=== PATIENT | female | born 1980 | race Caucasian/White ===

== ENCOUNTER 2020-01-19 16:07 | Emergency (ER) | payer OTHER, SELFPAY ==
--- NOTE | ~2020-01-19 | XR_ITS ---
EXAMINATION: XR hand RT min 3V DATE: 01/19/2020 16:37 INDICATION: Right hand pain and swelling at the third metacarpal. TECHNIQUE: 3 views of right hand were obtained. COMPARISON: None. FINDINGS: Bone alignment is normal. No fracture. Joint spaces are well maintained. IMPRESSION: 1. Normal right hand. Reviewed, dictated and finalized at location A. IMPRESSION: 1. Normal right hand.
[2020-01-19 16:22] VITALS: BP 125/65; PULSE 98; RESP 18; TEMP 36.8; O2SAT 97
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
== END 2020-01-19 17:03 | disposition home or self-care (01) ==
PROVIDERS: Emergency Provider Emergency Medicine; PCP Family Medicine
DX: S60.221A Contusion of right hand, initial encounter (principal); X58.XXXA Exposure to other specified factors, initial encounter
CPT/HCPCS: 73130; 99283

== ENCOUNTER 2020-07-29 23:50 | Emergency (ER) | payer OTHER, SELFPAY ==
--- NOTE | ~2020-07-29 | XR_ITS ---
EXAMINATION: XR chest 1V portable INDICATION: Overdose TECHNIQUE: Portable AP chest at 0021 hours COMPARISON: 02/10/2017 FINDINGS: The lungs are free of acute opacities. No pleural effusion or pneumothorax is identified. T he cardiomediastinal silhouette is normal. The visualized osseous structures are unremarkable. IMPRESSION: 1. No acute cardiopulmonary abnormality. Reviewed, dictated and finalized at location A. STANT COMMUNITY MANAGER
--- NOTE | ~2020-07-29 | XR_ITS ---
EXAMINATION: XR abdomen/kub 1V INDICATION: Toe ingestion, overdose TECHNIQUE: Supine view of the abdomen is obtained. COMPARISON: None FINDINGS: The radiopaque foreign body is identified. The bowel gas pattern is normal. There are no di lated loops of bowel. The visualized lung bases are clear. IMPRESSION: 1. Unremarkable abdominal radiograph. Reviewed, dictated and finalized at location A. SSMENT TECHNICIAN
[2020-07-29 23:50] VITALS: BP 157/93; PULSE 94; RESP 18; TEMP 36.3; O2SAT 97
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
[2020-07-30] VITALS (17 sets, daily range): BP systolic 103–126; BP diastolic 54–77; PULSE 66–82; RESP 14–20; TEMP 36.6; O2SAT 96–100
[2020-07-30 00:37] LABS: Glucose Point of Care 77 (65-105)
[2020-07-30 00:50] LABS: Basophils Absolute Auto 0.03 K/mm3 (0.00-0.10); Basophils Percent Auto 0.6 % (0.0-1.0); Eosinophils Absolute Auto 0.15 K/mm3 (0.02-0.50); Eosinophils Percent Auto 2.8 % (1.0-6.0); Hematocrit 41.6 % (35.0-49.0); Immature Granulocyte Absolute 0.02 K/mm3 (0.00-0.00); Immature Granulocyte Percent A 0.4 % (0.0-0.0); Lymphocytes Absolute Auto 1.99 K/mm3 (1.10-4.50); Lymphocytes Percent Auto 37.5 % (18.0-42.0); Mean Corpuscular HGB Conc 33.7 g/dL (32.0-36.0); Mean Corpuscular Hemoglobin 32.7 pg (27.0-31.0); Mean Corpuscular Volume 97.2 fL (78.0-102.0); Mean Platelet Volume 9.5 fl (9.2-11.8); Monocytes Absolute Auto 0.45 K/mm3 (0.10-0.90); Monocytes Percent Auto 8.5 % (2.0-11.0); Neutrophils Absolute Auto 2.7 K/mm3 (1.7-7.2); Neutrophils Percent Auto 50.2 % (50.0-70.0); Platelet Count Result 263 K/mm3 (150-420); Red Blood Count 4.28 M/mm3 (4.20-5.40); Red Cell Distribution Width 12.7 % (11.6-14.4); White Blood Count 5.3 K/mm3 (4.8-10.8)
--- NOTE | 2020-07-30 01:02 | PC.NURSE ---
poison control contacted. . recommend observing pt for 6 hours.
[2020-07-30 01:12] LABS: Lactic Acid Reflex 1.6 mmol/L (0.4-2.0)
[2020-07-30 01:27] LABS: Prothrombin Time 10.8 Seconds (9.50-12.10)
[2020-07-30 01:31] LABS: Appearance Urine Clear (Clear); Bilirubin Urine Negative (Negative); Color Urine Yellow (Yellow); Glucose Urine UA Negative (Negative); Ketones Urine Negative (Negative); Leukocyte Esterase Ur 1+ LEU/UL (Negative); Nitrate Urine Negative (Negative); Protein Urine Negative (Negative); Specific Grav Ur <= 1.005 (1.010-1.020); Urobilinogen Urine 0.2 mg/dL (0.2-1.0); pH Urine 6.5 (5.0-8.0)
[2020-07-30 01:33] LABS: Amphetamine Screen Urine Negative (Negative); Barbiturate Screen Urine Negative (Negative); Benzodiazepines Screen Urine Negative (Negative); Cannabinoid Screen Urine Positive (Negative); Cocaine Screen Urine Positive (Negative); Methadone Screen Urine Negative (Negative); Opiate Screen Urine Negative (Negative); Phencyclidine Screen Urine Negative (Negative)
[2020-07-30 01:33] LABS: Pregnancy On Board Control Positive; Urine Pregnancy Test Negative
[2020-07-30 01:36] LABS: Alanine Aminotransferase 21 U/L (14-59); Albumin Level 3.9 g/dL (3.4-5.0); Alkaline Phosphatase 69 U/L (46-116); Anion Gap 11 mmol/L (8-16); Aspartate Amino Transferase 10 U/L (15-37); Bilirubin,Total 0.2 mg/dL (0.00-1.00); Blood Urea Nitrogen 9 mg/dL (7-18); Calcium 8.7 mg/dL (8.5-10.1); Carbon Dioxide 24 mmol/L (21-32); Chloride 105 mmol/L (98-108); Creatine Kinase 51 U/L (26-192); Estimated CRCL calculation 123 ml/min; Estimated Glomerular Filt Rate > 60; Glucose 80 mg/dL (70-99); Magnesium 2.3 mg/dL (1.8-2.4); Osmolality Calculated 287 mOsm/kg (285-295); Phosphorus 2.4 mg/dL (2.6-4.7); Potassium 3.1 mmol/L (3.5-5.1); Salicylate 5.6 mg/dL (2.8-20.0); Sodium 140 mmol/L (136-145); Thyroid Stimulating Hormone 1.79 uIU/mL (0.36-3.74); Total Protein 7.3 g/dL (6.4-8.2)
[2020-07-30 01:39] LABS: Acetaminophen < 2 ug/mL (10-30)
[2020-07-30 01:40] LABS: Add Urine Microscopic? YES; Bacteria Urine Trace /hpf; Blood Urine Trace-lysed (Negative); RBC Urine 0-2 /hpf (0-2); Squamous Epithelial Cell Urine Few /hpf (Few)
[2020-07-30 01:40] LABS: Ethanol 202 mg/dL (0-6)
--- NOTE | 2020-07-30 01:44 | PC.NURSE ---
report to [facility]el
--- NOTE | 2020-07-30 01:51 | PC.NURSE ---
Report received, pt. sleeping c sitter at side and in view of nurse station.
[2020-07-30] MEDS: NITROFURANTOIN MONOHYD MACROCR 100 MG CAP PO ×2 (02:32→11:11)
[2020-07-30] MEDS: POTASSIUM CHLORIDE 20 MEQ PACKET (FOR LIQUID) 40 MEQ PO (02:32)
--- NOTE | 2020-07-30 02:33 | PC.NURSE ---
Pt. awakens and is alert when name called, Pt. took meds as given.
--- NOTE | 2020-07-30 03:35 | PC.NURSE ---
Pt. sleeping and in constant view of nurse station. VSS.
[2020-07-30] MEDS: ONDANSETRON INJ 4 MG/2 ML VIAL IV PUSH (04:40)
[2020-07-30] MEDS: SODIUM CHLORIDE 0.9% IV 1,000 ML 200 ML IV CONT (04:43)
--- NOTE | 2020-07-30 04:45 | PC.NURSE ---
Pt. awake, A&Ox3, onset of episode of vomiting, pt. then up and ambulatory per self to BR. Order obtained from Dr. Wang. Pt. back amb. to bed and wanting to know if she can leave. Advised pt. about another blood draw in AM and need to speak c counselor. Pt. back to bed c incident.
--- NOTE | 2020-07-30 06:07 | PC.NURSE ---
P.C. called back for update on pt. status, labs discussed, no further recomendations, P.C. closed case.
--- NOTE | 2020-07-30 07:05 | PC.NURSE ---
Pt. up amb. per self to BR and back to bed. Pt. agreeable to POC to speak c counselor. Pt. wanting breakfast tray.
[2020-07-30 07:15] LABS: Ethanol 108 mg/dL (0-6)
[2020-07-30 09:08] LABS: Ethanol 73 mg/dL (0-6)
--- NOTE | 2020-07-30 10:33 | PC.NURSE ---
Felix Dickson finished pt. palma. and d/c home c safety plan received by pt. F/U care discussed and home instructions given.
== END 2020-07-30 11:15 | disposition home or self-care (01) ==
PROVIDERS: Emergency Medicine; Emergency Provider Emergency Medicine; PCP Family Medicine
DX: R45.851 Suicidal ideations (principal); E87.6 Hypokalemia; R82.81 Pyuria; T50.902A Poisoning by unspecified drugs, medicaments and biological substances, intentional self-harm, initial encounter; F10.920 Alcohol use, unspecified with intoxication, uncomplicated
CPT/HCPCS: 36415; 71045; 74018; 80053; 80307; 81001; 81025; 82550; 82948; 83605; 83735; 83930; 84100; 84443; 85025; 85610; 85730; 87077; 87086; 87088; 87186; 93005; 96361; 96374; 99284; 99285; A9270; J2405; J7030

== ENCOUNTER 2021-02-18 18:41 | Emergency (ER) | payer OTHER, SELFPAY ==
--- NOTE | ~2021-02-18 | CT_ITS ---
EXAMINATION: CT abdomen pelvis w con EXAM DATE: 02/18/2021 21:07 INDICATION: RLQ tenderness, fever, vomiting RLQ tenderness/pain w/ nausea/vomiting today. TECHNIQUE: Spiral CT of the abdomen and pelvis was performed following intravenous injection of 100 m L Omnipaque 350. Axial, coronal and sagittal images of the abdomen and pelvis were reviewed. The do se-length product (DLP) for this examination was 692.88 mGy-cm. The exposure was tailored according to patient size (auto mA exposure control), and iterative reconstruction (ASIR) was used as additiona l dose reduction technique. Comparison is made to prior examination from 01/23/2018. FINDINGS: The liver, spleen, adrenal glands and pancreas are unremarkable. The gallbladder is contra cted but otherwise unremarkable. Portal and splenic veins are patent. Kidneys enhance symmetrically . There is no hydronephrosis. The uterus is anteverted and morphologically normal. The bladder i s unremarkable. There is no retroperitoneal or pelvic lymphadenopathy. Small umbilical fat-contain ing hernia. The appendix is normal. The stomach and small bowel are unremarkable. There is expected amount of c olonic stool. No free intraperitoneal gas. The heart is normal in size. There are no pericardial or pleural effusions. The lung bases are unremarkable. There are no osteoblastic or osteolytic les ions identified. In 2018, there is mild right perinephric fat stranding which has resolved. Otherwise, no appreciable interval change. IMPRESSION: 1. No acute intra-abdominal findings. Normal appendix. 2. Small umbilical fat-containing hernia. Reviewed, dictated and finalized at location A.
--- NOTE | 2021-02-18 18:59 | ED.ABDPAIN ---
HPI - Abdominal Pain General Chief Complaint: Abdominal Pain Stated Complaint: low side/stomach pain, blood in stool Time Seen by Provider: 02/18/21 19:09 Source: patient Mode of arrival: ambulatory Limitations: no limitations History of Present Illness HPI narrative: 40-year-old woman who was previously well comes in today complaining of right lower quadrant pain, nausea, vomiting, fevers, lightheadedness and blood in her toilet. States her symptoms started yesterday. He had a bowel movement earlier today which left the water in her toilet bright red. She states she has a history of hemorrhoids but has never had that much blood in her stools. There was no blood in her vomitus. She has no history of surgery except for C-sections x3. She is on OCP. She denies cough or cold symptoms, recent illness, rash, bruising, dysuria, hematuria, and vaginal bleeding or discharge. MD elicited complaint: abdominal pain Onset (ago): day(s) (1) Pain Consistency: constant Location: RLQ Severity: severe Quality: sharp Radiation: none Migration to: no migration Exacerbating factors: movement and other ( Walking) Relieving factors: nothing Associated symptoms: nausea, vomiting, fever, chills, hematochezia and other (BRBPR) Related Data Allergies Allergy/AdvReac Type Severity Reaction Status Date / Time No Known Allergies Allergy Unknown Unverified 04/28/07 13:01 Review of Systems Constitutional: Constitutional: Reports chills, Denies fatigue, Reports fever(s) and Denies weakness Eyes: Eyes: Denies change in vision and Denies photophobia ENT: Denies nasal congestion and Denies sore throat Cardiovascular: Cardiovascular: Denies chest pain and Denies radiating jaw, neck or arm pain Respiratory: Respiratory: Denies cough and Denies dyspnea Gastrointestinal: Gastrointestinal: Reports as per HPI, Reports abdominal pain, Reports nausea and Reports vomiting Genitourinary: Genitourinary: Denies abnormal vaginal bleeding, Denies hematuria, Denies nocturia, Denies dysuria and Denies vaginal discharge Musculoskeletal: Musculoskeletal: Denies back pain, Denies arthralgias and Denies joint swelling Integumentary/Breasts: Skin/Breast: Denies pruritus, Denies erythema and Denies rash Neurologic: Denies vertigo, Reports dizziness and Denies syncope Hematologic/Lymphatic: Hematologic/Lymphatic: Denies easy bleeding and Denies easy bruising Allergic/Immunologic: Allergic/Immunologic: Denies lip swelling and Denies throat swelling PMFSH Surgical History Surgical History (Updated 02/18/21 @ 19:46 by Ed Wang MD) History of x3 Social History Social History Smoking status: Current every day smoker Alcohol intake: current Substance use type: marijuana Gender identity (if verbalized by the patient): Female Exam Const: General: healthy appearing and alert Nutritional Appearance: well nourished Orientation/consciousness: patient oriented x3 Other: moderate acute distress Eyes: Conjunctivae: conjunctivae normal Pupils: Equal, round and reactive pupils present EOM: EOMs intact bilaterally Resp: Effort & Inspection: normal respiratory effort and not labored Auscultation: clear to auscultation bilaterally, no rales, no rhonchi and no wheezes Cardio: Rate: regular rate Rhythm: regular rhythm Heart sounds: no murmurs GI: GI Palp: Yes Soft to palpation, Yes Tenderness to palpation present (GI) ( right lower quadrant with percussion tenderness), No Guarding due to palpation present (GI) and No Rigid due to palpation Skin: General skin exam: normal color, no jaundice and no pallor Rashes: no rashes Neuro: General: patient oriented x3, moves all extremities, no focal motor deficits and CN's II-XI intact bilaterally Speech: normal speech Gait exam (Neuro): Normal gait present Extrem: General: normal to inspection and no clubbing, cyanosis or edema Other: ext
[2021-02-18 19:01] VITALS: BP 160/94; PULSE 86; RESP 20; TEMP 36.9; O2SAT 97
[2021-02-18] MEDS: SODIUM CHLORIDE 0.9% IV 1,000 ML 999 ML IV CONT (19:35)
[2021-02-18] MEDS: ONDANSETRON INJ 4 MG/2 ML VIAL IV PUSH (19:36)
[2021-02-18 19:38] LABS: Basophils Absolute Auto 0.04 K/mm3 (0.00-0.10); Basophils Percent Auto 0.4 % (0.0-1.0); Eosinophils Absolute Auto 0.26 K/mm3 (0.02-0.50); Eosinophils Percent Auto 2.8 % (1.0-6.0); Hematocrit 40.9 % (35.0-49.0); Hemoglobin 13.8 g/dL (12.0-15.0); Immature Granulocyte Absolute 0.04 K/mm3 (0.00-0.00); Immature Granulocyte Percent A 0.4 % (0.0-0.0); Lymphocytes Percent Auto 24.5 % (18.0-42.0); Mean Corpuscular HGB Conc 33.7 g/dL (32.0-36.0); Mean Corpuscular Hemoglobin 32.8 pg (27.0-31.0); Mean Corpuscular Volume 97.1 fL (78.0-102.0); Mean Platelet Volume 9.5 fl (9.2-11.8); Monocytes Absolute Auto 0.73 K/mm3 (0.10-0.90); Monocytes Percent Auto 7.8 % (2.0-11.0); Neutrophils Percent Auto 64.1 % (50.0-70.0); Platelet Count Result 272 K/mm3 (150-420); Red Blood Count 4.21 M/mm3 (4.20-5.40); White Blood Count 9.4 K/mm3 (4.8-10.8)
[2021-02-18 19:42] LABS: Occult Blood Negative (Negative)
[2021-02-18 19:54] LABS: Alanine Aminotransferase 29 U/L (14-59); Albumin Level 3.6 g/dL (3.4-5.0); Alkaline Phosphatase 76 U/L (46-116); Anion Gap 11 mmol/L (8-16); Aspartate Amino Transferase 12 U/L (15-37); Bilirubin,Total 0.2 mg/dL (0.00-1.00); Blood Urea Nitrogen 10 mg/dL (7-18); Carbon Dioxide 26 mmol/L (21-32); Chloride 105 mmol/L (98-108); Estimated CRCL calculation 83 ml/min; Estimated Glomerular Filt Rate > 60; Glucose 96 mg/dL (70-99); Lipase 69 U/L (73-393); Osmolality Calculated 293 mOsm/kg (285-295); Potassium 3.3 mmol/L (3.5-5.1); Sodium 142 mmol/L (136-145); Total Protein 6.7 g/dL (6.4-8.2)
[2021-02-18 19:55] LABS: Troponin I < 4.0 ng/L (0.00-60.4)
[2021-02-18 19:57] LABS: Lactic Acid Reflex 1.1 mmol/L (0.4-2.0)
[2021-02-18 20:22] LABS: Add Urine Microscopic? YES; Appearance Urine Clear (Clear); Bilirubin Urine Negative (Negative); Blood Urine 1+ (Negative); Glucose Urine UA Negative (Negative); Ketones Urine Negative (Negative); Leukocyte Esterase Ur Negative LEU/UL (Negative); Nitrate Urine Negative (Negative); Protein Urine Negative (Negative); Urobilinogen Urine 0.2 mg/dL (0.2-1.0); pH Urine 6.5 (5.0-8.0)
[2021-02-18 20:28] LABS: Bacteria Urine Trace /hpf; Color Urine Dark Yellow (Yellow); RBC Urine 0-2 /hpf (0-2); Squamous Epithelial Cell Urine Rare /hpf (Few); WBC Urine 0-3 /hpf (0-3)
[2021-02-18 20:29] LABS: Pregnancy On Board Control Positive; Urine Pregnancy Test Negative
[2021-02-18 21:46] VITALS: BP 155/101; PULSE 83; RESP 20; O2SAT 97
== END 2021-02-18 21:47 | disposition home or self-care (01) ==
PROVIDERS: Emergency Provider Emergency Medicine; PCP Family Medicine
DX: E87.6 Hypokalemia (principal); R10.31 Right lower quadrant pain; K64.9 Unspecified hemorrhoids
CPT/HCPCS: 36415; 74177; 80053; 81001; 81025; 82272; 83605; 83690; 84484; 85025; 96361; 96374; 99283; 99284; J2405; J7030; Q9967

== ENCOUNTER 2021-08-07 09:31 | Outpatient (CLI) | payer OTHER, SELFPAY ==
--- NOTE | ~2021-08-07 | XR_ITS ---
EXAMINATION: XR shoulder RT min 2V DATE: 08/07/2021 10:00 INDICATION: Right shoulder pain. TECHNIQUE: 4 views of right shoulder were obtained. COMPARISON: None. FINDINGS: Bone alignment is normal. No fracture. Joint spaces are well maintained. IMPRESSION: 1. Normal right shoulder. Reviewed, dictated and finalized at location B. OPERATOR IMPRESSION: 1. Normal right shoulder.
--- NOTE | ~2021-08-07 | XR_ITS ---
EXAMINATION: XR chest 2V DATE: 08/07/2021 09:59 INDICATION: Shortness of breath. Cough. TECHNIQUE: Frontal and lateral views of the chest were obtained. COMPARISON: Chest single view 07/30/2020, CT abdomen and pelvis 02/18/2021 FINDINGS: The chest demonstrates clear lungs without pneumonia, pleural effusion, or pneumothorax. Th e heart size is normal. IMPRESSION: 1. No acute cardiopulmonary disease. Reviewed, dictated and finalized at location B. RAL RESOURCES PROFESSOR
--- NOTE | ~2021-08-07 | XR_ITS ---
EXAMINATION: XR_CERV2-3V_CR EXAM DATE: 08/07/2021 10:00 INDICATION: Cervicalgia. TECHNIQUE: Cervical spine frontal, lateral, open-mouth odontoid projections. There is no prior stud y for comparison. FINDINGS: The vertebral bodies are aligned in the AP dimension. Vertebral body and disc heights are well-maintained. Mild cervical facet arthropathy and mid cervical uncovertebral joint arthropathy. P revertebral soft tissue and pre-dens space are within normal limits. The odontoid process is intact. The lateral masses of C1 line up with C2. IMPRESSION: Mild cervical arthropathy. Reviewed, dictated and finalized at location A. NCIAL SECRETARY IMPRESSION: Mild cervical arthropathy.
[2021-08-07 09:45] LABS: Basophils Absolute Auto 0.04 K/mm3 (0.00-0.10); Basophils Percent Auto 0.5 % (0.0-1.0); Eosinophils Absolute Auto 0.44 K/mm3 (0.02-0.50); Eosinophils Percent Auto 5.5 % (1.0-6.0); Hematocrit 41.8 % (35.0-49.0); Immature Granulocyte Absolute 0.01 K/mm3 (0.00-0.00); Immature Granulocyte Percent A 0.1 % (0.0-0.0); Lymphocytes Absolute Auto 1.77 K/mm3 (1.10-4.50); Mean Corpuscular HGB Conc 33.5 g/dL (32.0-36.0); Mean Corpuscular Hemoglobin 32.6 pg (27.0-31.0); Mean Corpuscular Volume 97.4 fL (78.0-102.0); Mean Platelet Volume 9.4 fl (9.2-11.8); Monocytes Absolute Auto 0.82 K/mm3 (0.10-0.90); Monocytes Percent Auto 10.2 % (2.0-11.0); Neutrophils Percent Auto 61.7 % (50.0-70.0); Platelet Count Result 284 K/mm3 (150-420); Red Blood Count 4.29 M/mm3 (4.20-5.40); Red Cell Distribution Width 12.6 % (11.6-14.4); White Blood Count 8.1 K/mm3 (4.8-10.8)
[2021-08-07 10:47] LABS: Alanine Aminotransferase 33 U/L (14-59); Albumin Level 3.6 g/dL (3.4-5.0); Alkaline Phosphatase 75 U/L (46-116); Anion Gap 11 mmol/L (8-16); Aspartate Amino Transferase 23 U/L (15-37); Bilirubin,Total 0.4 mg/dL (0.00-1.00); Blood Urea Nitrogen 13 mg/dL (7-18); Calcium 8.8 mg/dL (8.5-10.1); Carbon Dioxide 25 mmol/L (21-32); Chloride 104 mmol/L (98-108); Estimated Glomerular Filt Rate > 60; Free T4 Free Thyroxine 1.02 ng/dL (0.76-1.46); Glucose 91 mg/dL (70-99); Magnesium 2.4 mg/dL (1.8-2.4); Osmolality Calculated 290 mOsm/kg (285-295); Potassium 3.8 mmol/L (3.5-5.1); Sodium 140 mmol/L (136-145); Thyroid Stimulating Hormone 3.15 uIU/mL (0.36-3.74); Total Protein 6.5 g/dL (6.4-8.2); Vitamin B12 428 pg/mL (193-986)
[2021-08-10 19:24] LABS: Vitamin D 25 Hydroxy 8 ng/mL (30-100)
== END 2021-08-07 09:32 | disposition home or self-care (01) ==
LOC: CHSLAB 09:34
PROVIDERS: PCP Family Medicine; Visit Provider Nurse Practitioner Family
DX: M54.2 Cervicalgia (principal); R06.02 Shortness of breath; M25.511 Pain in right shoulder; R53.83 Other fatigue; Z79.899 Other long term (current) drug therapy
CPT/HCPCS: 36415; 71046; 72040; 73030; 80053; 82306; 82607; 83735; 84439; 84443; 85025

== ENCOUNTER 2021-11-12 04:10 | Emergency (ER) | payer OTHER, SELFPAY ==
--- NOTE | ~2021-11-12 | XR_ITS ---
EXAMINATION: XR chest 1V portable DATE: 11/12/2021 04:45 INDICATION: Chest pain. TECHNIQUE: A single frontal view of the chest was obtained. COMPARISON: Chest 2 views 08/07/2021, chest CT 11/12/2021 FINDINGS: The chest demonstrates clear lungs without pneumonia, pleural effusion, or pneumothorax. Th e heart size is normal. IMPRESSION: 1. No acute cardiopulmonary disease. Reviewed, dictated and finalized at location A.
--- NOTE | ~2021-11-12 | CT_ITS ---
EXAMINATION:CT diagnostic chest wo con DATE: 11/12/2021 05:45 INDICATION: Chest pain. TECHNIQUE: Computed tomography (CT) of the chest was performed without intravenous contrast. Automate d exposure control and iterative reconstruction technique were employed. The dose-length product (DLP ) was 360.29 mGy-cm. COMPARISON: CT abdomen and pelvis 02/18/2021 FINDINGS: There is mild atelectasis in left upper lobe. No pleural effusion. There is a diverticulum in the right tracheoesophageal groove at the thoracic inlet, likely a tracheal diverticulum. Calcifie d left hilar lymph nodes are consistent with old granulomatous disease. The heart size is normal. No pericardial effusion. Calcifications in the spleen are consistent with old granulomatous disease. The re is mild thoracic spondylosis. IMPRESSION: 1. No etiology for the patient's symptoms. Reviewed, dictated and finalized at location A.
[2021-11-12 04:10] VITALS: BP 124/99; PULSE 97; PULSE 98; RESP 20; TEMP 36.6; O2SAT 99
--- NOTE | 2021-11-12 04:18 | ECG_ITS ---
Measurements Intervals [place] Rate: 93 P: 35 [place]: 149 QRS: -33 QRSD: 100 T: 30 QT: 373 QTc: 465 Interpretive Statements SINUS RHYTHM WITH OCCASIONAL SUPRAVENTRICULAR PREMATURE COMPLEXES LEFT AXIS DEVIATION [QRS AXIS < -30] COMPARED TO ECG 07/29/2020 23:57:56 NO SIGNIFICANT CHANGE Electronically Signed On 11-12-2021 14:14:53 CDT by Alondra Marques M.D.
[2021-11-12] MEDS: ASPIRIN 81 MG CHEWABLE TABLET 324 MG PO (04:32)
[2021-11-12] MEDS: PANTOPRAZOLE SODIUM IV 40 MG VIAL IV PUSH (04:32)
[2021-11-12] MEDS: ONDANSETRON INJ 4 MG/2 ML VIAL IV PUSH (04:32)
[2021-11-12] MEDS: MAG HYDROX/ALUMINUM HYD/SIMETH 30 ML, PHENobarb/HYOSCY/ATROPINE/SCOP 32.4 MG, LIDOCAINE... PO (04:32)
[2021-11-12 04:40] LABS: Basophils Absolute Auto 0.02 K/mm3 (0.00-0.10); Basophils Percent Auto 0.2 % (0.0-1.0); Eosinophils Absolute Auto 0.24 K/mm3 (0.02-0.50); Eosinophils Percent Auto 2.3 % (1.0-6.0); Hematocrit 43.9 % (35.0-49.0); Immature Granulocyte Absolute 0.02 K/mm3 (0.00-0.00); Immature Granulocyte Percent A 0.2 % (0.0-0.0); Lymphocytes Absolute Auto 1.41 K/mm3 (1.10-4.50); Lymphocytes Percent Auto 13.5 % (18.0-42.0); Mean Corpuscular HGB Conc 34.2 g/dL (32.0-36.0); Mean Corpuscular Volume 96.5 fL (78.0-102.0); Mean Platelet Volume 9.4 fl (9.2-11.8); Monocytes Absolute Auto 1.38 K/mm3 (0.10-0.90); Monocytes Percent Auto 13.2 % (2.0-11.0); Neutrophils Absolute Auto 7.4 K/mm3 (1.7-7.2); Neutrophils Percent Auto 70.6 % (50.0-70.0); Platelet Count Result 291 K/mm3 (150-420); Red Blood Count 4.55 M/mm3 (4.20-5.40); White Blood Count 10.4 K/mm3 (4.8-10.8)
[2021-11-12] MEDS: NITROGLYCERIN SL 0.4 MG TABLET SUBLINGUAL ×2 (04:40→05:10)
[2021-11-12 04:48] VITALS: BP 122/66; PULSE 86; RESP 20; O2SAT 96
[2021-11-12 05:01] LABS: Alanine Aminotransferase 43 U/L (14-59); Albumin Level 3.6 g/dL (3.4-5.0); Alkaline Phosphatase 89 U/L (46-116); Anion Gap 10 mmol/L (8-16); Aspartate Amino Transferase 21 U/L (15-37); Bilirubin,Total 0.3 mg/dL (0.00-1.00); Blood Urea Nitrogen 11 mg/dL (7-18); Calcium 8.6 mg/dL (8.5-10.1); Carbon Dioxide 25 mmol/L (21-32); Chloride 101 mmol/L (98-108); Estimated CRCL calculation 120 ml/min; Estimated Glomerular Filt Rate > 60; Glucose 112 mg/dL (70-99); NT Pro B Type Natriuretic Pept 50 pg/mL (0-125); Osmolality Calculated 282 mOsm/kg (285-295); Potassium 3.1 mmol/L (3.5-5.1); Sodium 136 mmol/L (136-145)
[2021-11-12 05:02] LABS: Troponin I 92.1 ng/L (0.00-60.4)
[2021-11-12 05:07] LABS: Add Urine Microscopic? YES; Appearance Urine Sl Cloudy (Clear); Bilirubin Urine 1+ (Negative); Blood Urine 2+ (Negative); Color Urine Yellow (Yellow); Glucose Urine UA Negative (Negative); Ketones Urine Negative (Negative); Leukocyte Esterase Ur Negative LEU/UL (Negative); Nitrate Urine Negative (Negative); Protein Urine Negative (Negative); Specific Grav Ur >= 1.030 (1.010-1.020); Urobilinogen Urine 0.2 mg/dL (0.2-1.0); pH Urine 5.5 (5.0-8.0)
[2021-11-12] MEDS: MORPHINE SULFATE (*CRX) 2 MG/ML INJ IV PUSH (05:10)
[2021-11-12 05:14] LABS: Amphetamine Screen Urine Negative (Negative); Barbiturate Screen Urine Negative (Negative); Benzodiazepines Screen Urine Negative (Negative); Cannabinoid Screen Urine Positive (Negative); Cocaine Screen Urine Negative (Negative); Methadone Screen Urine Negative (Negative); Opiate Screen Urine Negative (Negative); Phencyclidine Screen Urine Negative (Negative)
--- NOTE | 2021-11-12 05:17 | PC.NURSE ---
Discussed transfer to cardiology for services, pt wishes to go to [facility] for cardiolgy Drs. and transfer. Call placed to [facility] transfer line c report and awaiting call back from cardiology.
[2021-11-12 05:23] LABS: Bacteria Urine 1+ /hpf; Mucus Urine Few /lpf; Squamous Epithelial Cell Urine Many /hpf (Few); WBC Urine 0-3 /hpf (0-3)
--- NOTE | 2021-11-12 05:24 | ED.CHESTPAIN ---
HPI - Chest Pain General Chief Complaint: Chest Pain Stated Complaint: Chest Pains Time Seen by Provider: 11/12/21 04:12 Source: patient, RN notes reviewed and old records reviewed Mode of arrival: ambulatory Limitations: no limitations History of Present Illness MD complaint: chest pain and chest heaviness Pertinent past history: other (similar non-cardiac chest pain 7 yrs ago.) Onset (ago): hour(s) (1) Timing of current episode: constant Prior episodes: Yes Onset: during rest Pain location: left chest Pain radiation: other (central sternum) Severity: severe Pain scale (0-10): 9 Quality: aching, heaviness, burning and crushing Relieving factors: nothing Exacerbating factors: nothing Associated symptoms: nausea and sense of impending doom Treatment prior to arrival: none Risk Factors Coronary artery disease risk factors: smoking history Related Data Allergies Allergy/AdvReac Type Severity Reaction Status Date / Time No Known Allergies Allergy Unknown Verified 09/15/21 09:00 Review of Systems Review of Systems: All systems reviewed & are unremarkable except as noted in HPI and below PMFSH Past Medical History Medical History Acute hypokalemia Alcohol intoxication Drug overdose Non-ST elevated myocardial infarction (non-STEMI) Pyuria Suicidal ideation Surgical History Surgical History History of x3 Social History Social History Smoking status: Current every day smoker Alcohol intake: current Substance use type: marijuana Gender identity (if verbalized by the patient): Female Exam Const: General: no acute distress Nutritional Appearance: obese Orientation/consciousness: patient oriented x3 Limitations: no limitations HENMT: Head: normal to inspection Ears: TM's normal bilaterally General nose exam: Normal external nose present and Normal nares present Mouth: Yes moist mucous membranes Eyes: Conjunctivae: conjunctivae normal Pupils: Equal, round and reactive pupils present EOM: EOMs intact bilaterally Neck: Neck: normal visual inspection and no lymphadenopathy Chest: Chest palpation & inspection: normal inspection of the chest Resp: Effort & Inspection: normal respiratory effort Auscultation: clear to auscultation bilaterally Cardio: Rate: tachycardic Rhythm: abnormal rhythm GI: Auscultation: normal bowel sounds : General: Yes bladder normal to palpation and Yes no CVA tenderness Back/Spine/Pelvis: Back: no CVA tenderness Skin: General skin exam: normal color Rashes: no rashes Neuro: General: patient oriented x3, moves all extremities, no meningeal signs, no focal motor deficits and CN's II-XI intact bilaterally Extrem: General: normal to inspection and no pedal edema Psych: Appearance: grossly normal Mental Status: mental status grossly normal Attitude: cooperative Thought content: Yes Normal thought content present Course Course Emergency Course: Pt for transfer to Cardiology care at [facility]. Reevaluation(s) Reevaluation #1: pt was pain-free in the ED. Date: 11/12/21 Time: 06:10 Vital Signs Vital signs: Vital Signs Temperature 36.6 C 11/12/21 04:10 Pulse Rate 98 11/12/21 04:10 Respiratory Rate 20 11/12/21 04:10 Blood Pressure 124/99 H 11/12/21 04:10 Pulse Oximetry 99 11/12/21 04:10 Temperature 36.6 C 11/12/21 06:53 Pulse Rate 79 11/12/21 06:53 Respiratory Rate 18 11/12/21 06:53 Blood Pressure 107/60 11/12/21 06:53 Pulse Oximetry 97 11/12/21 06:53 MDM - Chest Pain Lab Data Result diagrams: 11/12/21 04:36 11/12/21 04:36 Labs: Lab Results 11/12/21 11/12/21 11/12/21 Range/Units 04:36 04:36 05:03 WBC 10.4 (4.8-10.8) K/mm3 RBC 4.55 (4.20-5.40) M/mm3 Hgb 15.0 (12.0-15.0) g/dL Hct 43.
[2021-11-12] MEDS: POTASSIUM CHLORIDE 20 MEQ TABLET 40 MEQ PO (05:36)
--- NOTE | 2021-11-12 05:41 | PC.NURSE ---
Call back from [facility], no beds available at [facility], pt. wishes to transfer to [facility]. Call to house supv. Alanis, awaiting call back from senior drafter director oncology Dr Augustin.
[2021-11-12 05:47] VITALS: BP 120/86; PULSE 85; RESP 18; O2SAT 98
--- NOTE | 2021-11-12 05:54 | PC.NURSE ---
Call back from Dr Augustin accepts for transfer. Paperwork signed for transfer to [facility].
[2021-11-12] MEDS: HEPARIN SODIUM 5,000 UNITS/ML VIAL 5000 UNITS IV PUSH (06:21)
[2021-11-12] MEDS: HEPARIN SOD/D5W 100 UNITS/ML 25,000 UNITS/250 ML BAG 9.99 UNITS IV CONT (06:25)
[2021-11-12] MEDS: NITROGLYCERIN OINTMENT 1 INCH DOSE TRANSDERM (06:42)
[2021-11-12 06:53] VITALS: BP 107/60; PULSE 77; PULSE 79; RESP 18; TEMP 36.6; O2SAT 97
--- NOTE | 2021-11-12 06:59 | PC.NURSE ---
Report given to Neli at [facility], call placed to [facility] for transfer. Pt resting, VSS, monitor shows NSR.
--- NOTE | 2021-11-12 07:14 | PC.NURSE ---
Report given to GBAAS, pt loaded to cot s difficulty. Pt stable.
== END 2021-11-12 07:19 | disposition short-term general hospital (02) ==
PROVIDERS: Emergency Provider Emergency Medicine; PCP Family Medicine
DX: I21.4 Non-ST elevation (NSTEMI) myocardial infarction (principal)
CPT/HCPCS: 36415; 71045; 71250; 80053; 80307; 81001; 83880; 84484; 85025; 93005; 96365; 96375; 99291; A9270; C9113; J1644; J2270; J2405

== ENCOUNTER 2021-11-12 09:24 | Inpatient (IN) | payer OTHER, SELFPAY ==
[2021-11-12] VITALS (18 sets, daily range): BP systolic 94–130; BP diastolic 54–96; PULSE 65–91; RESP 14–20; TEMP 36.2–36.9; O2SAT 95–100; BMI 31.8
--- NOTE | ~2021-11-12 | CT_ITS ---
EXAMINATION: CTA chest EXAM DATE: 11/12/2021 15:35 INDICATION: Chest pain to back, elevated trop, cath neg . TECHNIQUE: Spiral CT of the chest following intravenous injection of 100 mL Omnipaque 350. Axial, co satya and sagittal images of the chest were reviewed. Maximum intensity projection 3-D reconstruction s of the aorta were created by the technologist on dedicated workstation. Coronal maximum intensity pixel images of chest reviewed. The dose-length product (DLP) for this examination was 594.72 mGy-cm . The exposure was tailored according to patient size (auto mA exposure control), and iterative fatuma nstruction (ASIR) was used as additional dose reduction technique. Comparison is made to prior examin ation from earlier same date, a noncontrast study. FINDINGS: Aorta and pulmonary arteries are opacified. Thoracic aorta is normal in caliber, no dissect ion. Scanning was performed through the renal arteries. The celiac, SMA, renal arteries are widely pa tent. There are no pleural or pericardial effusions. Tracheobronchial tree is patent. There is n o mediastinal, hilar or axillary lymphadenopathy. There is no pneumothorax. Heart normal in size. No evidence of coronary arterial calcification. Upper abdomen is unremarkable. The bones are un remarkable, no rib fracture identified IMPRESSION: Unremarkable CTA chest examination. Reviewed, dictated and finalized at location A.
--- NOTE | 2021-11-12 08:08 | ECG_ITS ---
Measurements Intervals [place] Rate: 72 P: -7 [place]: 144 QRS: -28 QRSD: 99 T: 2 QT: 386 QTc: 425 Interpretive Statements SINUS RHYTHM BORDERLINE LEFT AXIS DEVIATION [QRS AXIS < -20] LOW QRS VOLTAGE IN PRECORDIAL LEADS [QRS DEFLECTION < 1.0 mV IN CHEST LEADS] COMPARED TO ECG 11/12/2021 04:17:05 NO SIGNIFICANT CHANGES Electronically Signed On 11-12-2021 14:22:24 CDT by Alondra Marques M.D.
--- NOTE | 2021-11-12 08:49 | PM.IMHP ---
H&P: HPI History of Present Illness Date/Time: 11/12/21 08:49 Chief Complaint: 41yo female with questionable hx of NSTEMI transferred from outside hospital for chest pain. Around 308am, patient was awaken with chest pain. She describes it as a 'tightness' substernal radiating to the collar bone area. She had nausea and vomiting as well as SOB. No abd pain. Recently had COVID in September but did not require hospitalization. The chest pain was worse with coughing and when laying on her back. Pain is better if she massages the mid chest and if she lays on her side. More palpable pain in the upper part of the chest. Seven years ago, she had similar pain after her mother . She had EKG changes and transferred to [facility] where she had cardiac imaging possibly a heart cath. She was told she had a 'small heart attack' but when she saw the video rental clerk a few weeks later, he said she did not have a heart attack. She presented to the outside hospital for evaluation. Patient was hemodynamically stable. While at the hospital, she developed upper back pain that was also positional. Worse when laying on her back and better with laying on her side. She denies dysuria or hematuria. UDS positive for Cannabinoids. UA noted but probably contaminated. Troponin elevated. EKG showing NSR with PACs and LAD. She was treated with ASA, Zofran, Morphine, GI cocktail and PPI. Potassium replaced. NTP placed and Heparin drip started. CXR clear. Noncontrast CT Chest showing no acute findings. She was transferred here for further evaluation. Review of Systems Review of Systems: Not of OCP but has IUD and uses condoms. Was drinking heavy but quit 1 month ago and is now trying to get into shape. She does also complain of right sided headache that is periauricular and last 30-45 sec and always right sided. She states the pain wakes her up from sleep and worse with coughing or sneezing. No numbness/tingling/weakness. No vision changes. No hearing loss or ear pain. She has a sunburn related to laying in the tanning bed too long All systems reviewed & are unremarkable except as noted in HPI and below PMFSH Past Medical History Medical History Drug overdose Family history of heart disease Non-ST elevated myocardial infarction (non-STEMI) Around 2014 the patient was admitted to [facility] with chest pain, told she had a heart attack, might of had a heart catheterization, then the following week a video rental clerk told her she did not have an UT and she could throw away her pills. G5,P3 with miscarriage x1 and elective Ab x1 in Aug 2021. Suicidal ideation Tobacco use Family History Family History (Updated 11/12/21 @ 09:24 by Alondra Marques MD) Father Heart disease Mother Chest pain Had chest pain. suddenly; rolled her 4 mon off a vanessa, patient wonders if she was unconscious when that occurred. Social History Social History (Updated 11/12/21 @ 09:42 by Yash Vyas MD) Social History: Lives with boyfriend, her three children and has custody of her niece. She would drink 4-5 drinks 3x/week. Marijuana but no other drug use and no hx of IVDU. Smokes 1/2ppd x 25 yrs. Full code. She nominates her boyfriend Solo to be individual would make medical decisions for her if she is unable. Smoking packs per day: 1.25 Smoking cigarettes per day: 25.0 Years smoked: 25 Smoking pack-years: 31.25 Smoking status: Current every day smoker Tobacco type: cigarettes Additional smoking assessment comments: smoke marijuana daily and cigarettes Alcohol intake: former Drinks per week: 12 Substance use: current Substance use type: marijuana Other substance usage details: zara Last use: 11/12/21 Gender identity (if verbalized by the patient): Female Spiritual care concerns: No Meds Home Medications and Allergies Home Medications Medication Instructions Recorded Confirmed Type cholecalciferol (vitamin D3)
[2021-11-12 09:03] LABS: Troponin I 0.114 ng/mL (0.000-0.034)
--- NOTE | 2021-11-12 09:13 | PM.CNCAR ---
Assessment and Plan Assessment and plan (1) Non-ST elevated myocardial infarction (non-STEMI): Code(s): I21.4 - Non-ST elevation (NSTEMI) myocardial infarction Status: Acute Assessment and Plan: Patient presents with chest pain that has elements of angina and some atypical features as well. She has 2 elevated troponins. Interestingly her EKGs are is fairly unremarkable, no acute ischemic changes. Still we have to assume that she has ACS and with ongoing chest discomfort I recommended an emergent cardiac catheterization. I ordered a stat urine hCG was has not yet been done; the patient does have an IUD and does not think she is so we will proceed with cardiac catheterization. If the cardiac catheterization does not show any obvious cause for chest pain, then we will proceed with a CTA of the chest. I have given her IV fluids since she may recieve a double dye load today. Reviewed possible risks and complications with patient including breathing problems, bleeding problems, blood vessel problems, unanticipated surgery, allergic reactions, kidney problems, CVA, PA, and among others. Discussed possibility of stenting and possible need for DAPT. Discussed the possibility that if DAPT is interrupted stent thrombosis can occur resulting in heart attack and . Patient understands risks and desires to proceed. Discussed with DR. Vyas and interventionalist Dr. Rocha. (2) Tobacco use: Code(s): Z72.0 - Tobacco use Status: Acute Assessment and Plan: Will encourage tobacco cessation. (3) Cannabis abuse: Code(s): F12.10 - Cannabis abuse, uncomplicated Status: Acute Assessment and Plan: Some recent data suggests an association of cannabis use with myocardial infarction. (4) Family history of heart disease: Code(s): Z82.49 - Family history of ischemic heart disease and other diseases of the circulatory system Status: Acute History of Present Illness History of Present Illness Consult date/time: 11/12/21 09:13 Consult reason: chest pain Reason For Visit: NSTEMI/Elevated troponins Narrative: Elaine Leonard is a 41-year-old female whom I was asked to see at the request of Dr. Vyas for our advice and opinion regarding her chest pain in consultation. Ms. Leonard was in her normal state of health yesterday, but awoke early this morning with severe 9/10 chest pain associated with nausea vomiting and shortness of breath. She came to the [place] emergency room and was given nitroglycerin X 3 and aspirin without much change, then morphine with some improvement. She was also given Zofran, Protonix, a GI cocktail. The emergency room physician and I discussed the case, I recommended repeating EKG (not yet done at time of departure) and starting heparin drip, then transferring to [facility]. The discomfort seemed to subside but then returned when she came to [facility]. She describes this is a tightness across her chest and in the midsternal area radiating to the interscapular area. There is a bit of a pleuritic component, hurting to take a deep breath and cough, as well as positional component, worse on her back and better when she lies on her left side. Two EKGs are fairly unremarkable. Chest x-ray was negative. The patient had a CT scan at [facility] without contrast, which showed no abnormalities. Her troponin at [facility] was 90 (there upper limits of normal with 60). Her troponin here was 0.114, elevated. She has had a mild cough recently. She started exercising 1 month ago with no exertional problems but has not done any unusual heavy strenuous exercise. She had COVID in September. She doubts ; she has an IUD and uses condoms. The patient uses tobacco and marijuana but no other drugs. No hypertension diabetes or elevated cholesterol. Her father had heart disease and mother had chest pain before she . Review of Systems Con
--- NOTE | 2021-11-12 09:36 | WPDMODSED ---
Moderate Sedation Note-Pt Data Patient Data Diagnosis: Chest pain elevated troponin Present Complaint: chest pain Procedure to be performed/Plan: left heart catheterization Allergies Allergy/AdvReac Type Severity Reaction Status Date / Time No Known Allergies Allergy Unknown Verified 09/15/21 09:00 Home Medications Medication Instructions Recorded Confirmed Type cholecalciferol (vitamin D3) 1,250 See Rx Instructions .ROUTE 10/02/21 11/12/21 Rx mcg (50,000 unit) capsule .COMPLEX #8 capsule Current Medications: Active Medications Sodium Chloride (Normal Saline Iv) 500 mls @ 125 mls/hr IV CONT .Q4H PAYAL Sedation/Anesthesia: No previous sedation/anesthesia problems (including family history). [facility] Past Medical History Medical History Drug overdose Family history of heart disease Non-ST elevated myocardial infarction (non-STEMI) Around 2014 the patient was admitted to [facility] with chest pain, told she had a heart attack, might of had a heart catheterization, then the following week a meat press operator told her she did not have an WA and she could throw away her pills. Suicidal ideation Tobacco use Surgical History Surgical History History of x3 Family History Family History (Updated 11/12/21 @ 09:24 by Alondra Marques MD) Father Heart disease Mother Chest pain Had chest pain. suddenly; rolled her 4 mon off a vanessa, patient wonders if she was unconscious when that occurred. Social History Social History (Updated 11/12/21 @ 09:24 by Alondra Marques MD) Social History: Three children. Smoking packs per day: 1.25 Smoking cigarettes per day: 25.0 Years smoked: 25 Smoking pack-years: 31.25 Smoking status: Current every day smoker Tobacco type: cigarettes Additional smoking assessment comments: smoke marijuana daily and cigarettes Alcohol intake: former Drinks per week: 12 Substance use: current Substance use type: marijuana Other substance usage details: zara Last use: 11/12/21 Gender identity (if verbalized by the patient): Female Spiritual care concerns: No Mod Sed Physical Exam Physical Exam Pre Procedural Exam: Normal: Nose, Neck, Throat, Airway, Lungs, Heart Size, Heart Rate, Heart Rhythm, Neuro Exam and Extremities and Variation: Appearance ( overweight white female) Hours since solid foods: 12 Hours since liquid intake: 12 Mallampati Classification: class II Internal Medicine - PN: Obj Da Vital Signs Vital Signs: Vital Signs - 24 hr 11/12/21 08:30 Temperature 36.9 C Pulse Rate 72 Respiratory Rate 16 Blood Pressure 130/61 Pulse Oximetry 98 Meds/Results Medications: Active Medications Generic Name Dose Route Start Last Admin Trade Name Freq PRN Reason Stop Dose Admin Sodium Chloride 500 mls @ 125 mls/hr 11/12/21 09:15 Normal Saline Iv IV CONT .Q4H PAYAL Labs Labs: Laboratory Results - last 24 hr 11/12/21 08:18 Troponin I 0.114 H* ASA Classification/Sedation ASA Classification/Sedation ASA Class: III Emergent: No Risks: Risks, benefits and alternatives explained and patient/family accepted plan for sedation. Patient re-evaluated immediately prior to sedation.
--- NOTE | 2021-11-12 09:51 | PC.NURSE ---
924-clinical lab clerk staff at bedside to take pt for angiogram. 929-spoke with Dr. Marques and she stated to hold HCG urine test due to timing of angio. 32-consent reviewed with pt from laborer vegetable farm staff. 35-pt to clinical lab clerk via cart.
[2021-11-12 09:52] LABS: Partial Thromboplastin Time 51.1 SECONDS (22.3-36.8)
--- NOTE | 2021-11-12 10:19 | WPDCARDPROC ---
Cardiac Cath Procedure Note Date of procedure:: 11/12/21 Performing physician:: Clinton Rocha MD Indication:: chest pain troponin elevation Brief clinical history:: this is a 41-year-old woman who is overweight and has a history of tobacco smoking. She experienced some chest pain awakening her from sleep she came into the hospital for evaluation. Her electrocardiograms have normal however her troponin level was modestly elevated. In this setting and angiogram has been recommended. Procedure Procedure performed:: left ventriculogram coronary angiogram Angio-Seal to right femoral artery Sedation/Medication given:: fentanyl 50 mg Versed 2 mg case start time 9:46 a.m. case end time 10:13 a.m. Access site:: right femoral artery Estimated blood loss:: 20 cc Procedure note:: patient was brought to the cardiac catheterization lab in the postabsorptive state where the right femoral triangle was prepared and draped in the normal fashion. Anesthesia was provided with 1% lidocaine infiltrated locally. Using the modified Seldinger technique the femoral artery was punctured a 5 Setswana vascular sheath was placed. After this left heart catheterization was carried out. A 5 Setswana angled pigtail catheter was used to measure left-sided hemodynamics and to inject LV g in the RM projection. After this I used a standard 5 Setswana JR4 catheter to inject the right coronary artery and then a 5 Setswana FL4 catheter to engage and inject the left coronary artery. The cineangiograms were then reviewed and the case was terminated. An angiogram was performed to the femoral artery through the sheath after which a Angio-Seal device was deployed with good hemostatic result. She left the geotechnical laboratory technician stable condition with no apparent procedural complications and no sign of a groin hematoma. Findings:: Hemodynamics: Central aortic pressure is 114 74 left ventricle 114/4 end-diastolic 16 there is no gradient on pullback across the aortic valve. left ventricle: The apical segment of the LV has some subtle hypokinesia the remainder of the ventricle exhibits normal wall motion. The global ejection fraction is normal 55%. The left main coronary artery is nicely patent left anterior descending is a moderate caliber artery in the proximal half and rather small down at the apical portion. The LAD is smooth and angiographically normal in appearance with ELYSE 3 flow down to the apex. The LAD and its branches have no atherosclerosis and no evidence of coronary dissection. Circumflex is a moderate caliber artery giving rise to marginal branches the circumflex system is smooth and angiographically normal in appearance right coronary artery is large in caliber dominant to the posterior circulation it is smooth and angiographically free of disease. Conclusion:: 1. Right coronary dominant circulation with no evidence of coronary artery disease 2. very subtle apical hypocontractility overall normal ejection fraction Clinton Rocha MD FACC
--- NOTE | 2021-11-12 10:36 | ADMGEN ---
This patient, Elaine Leonard, was admitted to IMU Room 202-. Patient/family oriented to hospital policies and general routines including ID bracelet, bed and alarms, visiting hours, pain management, procedures, bathroom and other care routines, personal items, smoking policy, room service/diet, and visiting hours. Information on how to activate the Rapid Response Team has been discussed. Patient/Family are encouraged to report perceived risks to care and to ask questions if they do not understand what they are told or what they should do.
[2021-11-12 12:24] LABS: Troponin I 0.112 ng/mL (0.000-0.034)
[2021-11-12 13:04] LABS: Beta HCG Quantitative < 2.39 mIU/ML
[2021-11-12] MEDS: SODIUM CHLORIDE 0.9% IV 1,000 ML 125 ML IV CONT (15:46)
[2021-11-12 15:51] LABS: Troponin I 0.092 ng/mL (0.000-0.034)
[2021-11-12] MEDS: METOPROLOL SUCCINATE EXT REL 25 MG TABCR PO (18:56)
[2021-11-12] MEDS: NICOTINE (*PBKC) 21 MG PATCH 1 PATCH TRANSDERM (21:07)
[2021-11-12] MEDS: ALPRAZolam (*CRX) 0.25 MG TABLET PO (21:21)
[2021-11-13] VITALS (7 sets, daily range): BP systolic 100–116; BP diastolic 41–69; PULSE 63–86; RESP 18–21; TEMP 35.8–36.7; O2SAT 98–99
[2021-11-13 05:01] LABS: Basophils Percent Auto 0.3 % (0.2-1.2); Eosinophils Absolute Auto 0.3 K/mm3 (0-0.3); Eosinophils Percent Auto 4.9 % (0-4.4); Hematocrit 39.4 % (37.0-47.0); Hemoglobin 13.3 g/dL (12.0-15.0); Immature Granulocyte Absolute 0.03 K/mm3 (0.00-0.031); Immature Granulocyte Percent A 0.5 % (0-0.5); Lymphocytes Absolute Auto 1.59 K/mm3 (0.9-3.2); Lymphocytes Percent Auto 24.1 % (18.3-44.2); Mean Corpuscular HGB Conc 33.8 g/dl (32-36); Mean Corpuscular Hemoglobin 32.7 pg (26-34); Mean Corpuscular Volume 96.8 fl (80-100); Mean Platelet Volume 9.9 fl (7.4-10.4); Monocytes Absolute Auto 0.9 K/mm3 (0.1-0.6); Neutrophils Absolute Auto 3.7 K/mm3 (1.3-6.7); Neutrophils Percent Auto 56.2 % (45.5-73.1); Platelet Count Result 262 k/mm3 (150-375); Red Blood Count 4.07 M/mm3 (4.2-5.4); Red Cell Distribution Width 13.1 % (11.5-14.5); White Blood Count 6.6 K/mm3 (4.5-10.0)
[2021-11-13 05:20] LABS: Potassium 3.3 mmol/L (3.4-5.0)
[2021-11-13 05:27] LABS: Anion Gap 5 mmol/L (8-16); Blood Urea Nitrogen 12 mg/dL (7-17); Calcium 8.3 mg/dL (8.4-10.2); Carbon Dioxide 23 mmol/L (22-30); Chloride 108 mmol/L (98-107); Cholesterol 161 mg/dL (0-200); Estimated CRCL calculation 133 ml/min; Estimated Glomerular Filt Rate > 60; Glucose 101 mg/dL (65-110); Magnesium 2.2 mg/dL (1.6-2.3); Sodium 136 mmol/L (137-145)
--- NOTE | 2021-11-13 08:28 | PM.PNCARD ---
Progress Note: A&P Assessment and Plan (1) Non-ST elevated myocardial infarction (non-STEMI): Code(s): I21.4 - Non-ST elevation (NSTEMI) myocardial infarction Status: Inactive Assessment and Plan: Patient presents with chest pain that has elements of angina and some atypical features as well. She has 2 elevated troponins. Interestingly her EKGs are is fairly unremarkable, no acute ischemic changes. She had ongoing chest discomfort so coronary angiogram was recommended and pursued. Left heart catheterization not show any evidence of coronary artery disease. She does have some subtle apical hypokinesis. Her ejection fraction is normal. Based on these findings we suspect ACS secondary to a mild Takotsubo. She has been placed on aspirin, statin, metoprolol, and low-dose lisinopril. Not experiencing any chest pain this morning. She is stable and appropriate for discharge home from a cardiac perspective. I will arrange follow-up for her in our office. (2) Tobacco use: Code(s): Z72.0 - Tobacco use Status: Acute Assessment and Plan: Encouraged smoking cessation. She did receive a nicotine patch last night which she states has been helping immensely. I encouraged her to continue with nicotine patches. She states that she is committed to smoking cessation when she is out of the hospital. (3) Cannabis abuse: Code(s): F12.10 - Cannabis abuse, uncomplicated Status: Acute Assessment and Plan: Some recent data suggests an association of cannabis use with myocardial infarction. (4) Family history of heart disease: Code(s): Z82.49 - Family history of ischemic heart disease and other diseases of the circulatory system Status: Acute Subjective Date/time seen: 11/13/21 08:28 Cardiology follow-up for NSTEMI She is feeling better this morning. She does not have any chest pain, shortness of breath, palpitations. She does complain of some musculoskeletal pain around her collarbone when she coughs. No other complaints. Review of Systems Constitutional: Constitutional: Denies fatigue and Reports headache(s) Eyes: Eyes: Reports no additional eye complaints ENT: Reports headache(s) and Denies epistaxis Cardiovascular: Cardiovascular: Reports chest pain, Denies pedal edema, Denies leg edema, Denies palpitations, Reports dyspnea and Denies dyspnea on exertion Respiratory: Respiratory: Reports cough, Reports dyspnea and Denies dyspnea on exertion Gastrointestinal: Gastrointestinal: Denies abdominal pain, Denies hematochezia and Denies hematemesis Genitourinary: Genitourinary: Denies hematuria Musculoskeletal: Musculoskeletal: Reports no additional musculoskeletal complaints Integumentary/Breasts: Skin/Breast: Denies rash Neurologic: Reports headache(s) Psychiatric: Psychiatric: Reports no additional psychiatric complaints Endocrine: Endocrine: Denies fatigue and Denies palpitations Exam Const: General: comfortable and no acute distress HENMT: Head: normal to inspection Mouth: Yes moist mucous membranes Eyes: General: appearance normal, both eyes and all related structures Neck: Neck: supple and no JVD Carotids: no bruits Lymphatic: lymphadenopathy not noted Resp: Effort & Inspection: normal respiratory effort Auscultation: clear to auscultation bilaterally Cardio: Rate: regular rate Rhythm: regular rhythm Heart sounds: no gallops and no murmurs GI: Inspection: non-distended Auscultation: normal bowel sounds Skin: General skin exam: normal color Other: Right groin arterial access a free from bleeding, hematoma, or bruit. Neuro: General: patient oriented x3 Cognition (Neuro): normal cognition Speech: normal speech Motor exam (neuro): Normal motor muscle tone present throughout Extrem: General: normal to inspection, no edema and no pedal edema Psych: Mental Status: mental status grossly normal Affect: normal affect Objective Data Vital Sig
[2021-11-13] MEDS: ASPIRIN 81 MG CHEWABLE TABLET PO (08:41)
[2021-11-13] MEDS: ATORVASTATIN 40 MG TABLET PO (08:41)
[2021-11-13] MEDS: lisinopriL 2.5 MG TABLET PO (08:42)
[2021-11-13] MEDS: NICOTINE (*PBKC) 21 MG PATCH 1 PATCH TRANSDERM (08:42)
--- NOTE | 2021-11-13 11:03 | PM.DS ---
DS: Admitting Diagnosis Discharge Date 11/13/2021 Admitting Diagnosis chest pain DS: Discharge Diagnosis Discharge Diagnosis (1) Non-ST elevated myocardial infarction (non-STEMI): Code(s): I21.4 - Non-ST elevation (NSTEMI) myocardial infarction Status: Inactive (2) Cannabis abuse: Code(s): F12.10 - Cannabis abuse, uncomplicated Status: Acute (3) Tobacco use: Code(s): Z72.0 - Tobacco use Status: Acute DS: Summary Hospital Course Reason for hospitalization: Chief Complaint: 41yo female with questionable hx of NSTEMI transferred from outside hospital for chest pain. Around 308am, patient was awaken with chest pain. She describes it as a 'tightness' substernal radiating to the collar bone area. She had nausea and vomiting as well as SOB. No abd pain. Recently had COVID in September but did not require hospitalization. The chest pain was worse with coughing and when laying on her back. Pain is better if she massages the mid chest and if she lays on her side. More palpable pain in the upper part of the chest. Seven years ago, she had similar pain after her mother . She had EKG changes and transferred to [facility] where she had cardiac imaging possibly a heart cath. She was told she had a 'small heart attack' but when she saw the doctor of audiology a few weeks later, he said she did not have a heart attack. She presented to the outside hospital for evaluation. Patient was hemodynamically stable. While at the hospital, she developed upper back pain that was also positional. Worse when laying on her back and better with laying on her side. She denies dysuria or hematuria. UDS positive for Cannabinoids. UA noted but probably contaminated. Troponin elevated. EKG showing NSR with PACs and LAD. She was treated with ASA, Zofran, Morphine, GI cocktail and PPI. Potassium replaced. NTP placed and Heparin drip started. CXR clear. Noncontrast CT Chest showing no acute findings. She was transferred here for further evaluation. Hospital Course: patient was seen by doctor of audiology had a cardiac catheterization did not show any acute coronary ischemia and did not require any stent to further evaluate patient had a cardiac echo which was essentially normal other than mild form takotsubo cardiomyopathy as patient is under lot of stress from her son and recently her father was diagnosed with lung cancer, also had a CTA of the chest and there was no issue with aorta, patient is seen by Cardiology recommending to treat the patient with aspirin, metoprolol, low-dose lisinopril and statin, patient remains clinically stable will discharge patient today. Status at Discharge Functional status at discharge: independent ambulation Overall status at discharge: patient is back to baseline Time Spent with Patient Time attestation: Total time spent providing and/or coordinating discharge services: Patient was seen and examined at the time of the discharge Condition at discharge is stable Code status: Full code. Time spent preparing discharge summary, discharge medications, discussing discharge planning with social work case manager and patient is 35 minutes. Time spent: Greater than 30 minutes Exam Narrative: Patient is comfortable, NAD HEENT: eyes are clear and none icteric LUNGS: normal respiratory effort ABD: distended Lower extremities: no edema SKIN: nonjaundiced Neuro: grossly intact. DS: Data Data Completed and Pending Labs on day of discharge: Labs from last 24 hours 11/13/21 11/13/21 11/12/21 04:21 04:21 14:38 WBC 6.6 RBC 4.07 L Hgb 13.3 Hct 39.4 MCV 96.8 MCH 32.7 MCHC 33.8 RDW 13.1 Plt Count 262 MPV 9.9 Immature Gran % (Auto) 0.5 Neut % (Auto) 56.2 Lymph % (Auto) 24.1 [place] % (Auto) 14.0 H Eos % (Auto) 4.9 H Baso % (Auto) 0.3 Lymph # (Auto) 1.59 [place] # (Auto) 0.9 H Eos # (Auto) 0.3 Baso # (Auto) 0.0 Abs Immat Gran (auto) 0.03 Absolute Neuts (auto) 3.7
--- NOTE | 2021-11-14 11:48 | PC.NURSE ---
Patient called stating her nicotine patch order was not sent to [facility] in [place]. I faxed order to [facility]. Dr. Gilman did order this med. Attempted to call patient. No answer. Unable to leave .
== END 2021-11-13 11:19 | disposition home or self-care (01) | DRG 192 ==
PROVIDERS: Internal Medicine; Internal Medicine Cardiovascular Disease; Specialist; Admitting Provider Internal Medicine; PCP Family Medicine; Visit Provider Family Medicine
PROC: 4A023N7 Measurement of Cardiac Sampling and Pressure, Left Heart, Percutaneous Approach (ICD-10-PCS; CPT 93452; principal; 2021-11-12 09:30)
PROC: 4A023N7 Measurement of Cardiac Sampling and Pressure, Left Heart, Percutaneous Approach (ICD-10-PCS; 2021-11-12 09:30)
DX: I51.81 Takotsubo syndrome (principal); R77.8 Other specified abnormalities of plasma proteins; F17.210 Nicotine dependence, cigarettes, uncomplicated; F12.90 Cannabis use, unspecified, uncomplicated; Z86.16 Personal history of COVID-19; Z82.49 Family history of ischemic heart disease and other diseases of the circulatory system
CPT/HCPCS: 36415; 71275; 80048; 82465; 83735; 84484; 84702; 85025; 85730; 86140; 93005; 93458; A9270; C1760; C1887; C1894; G0269; J1644; J2250; J3010; J7030; J7040; Q9967

== ENCOUNTER 2021-11-18 12:03 | Emergency (ER) | payer OTHER, SELFPAY ==
[2021-11-18 12:20] VITALS: PULSE 72
--- NOTE | 2021-11-18 12:21 | ECG_ITS ---
Measurements Intervals [place] Rate: 87 P: 47 OH: 160 QRS: -42 QRSD: 105 T: 29 QT: 378 QTc: 457 Interpretive Statements SINUS RHYTHM LEFT AXIS DEVIATION [QRS AXIS < -30] ABNORMAL ECG COMPARED TO ECG 11/12/2021 08:42:16 NO SIGNIFICANT CHANGES Electronically Signed On 11-18-2021 17:53:09 CDT by Braden Carroll M.D.
--- NOTE | 2021-11-18 12:21 | ED.CHESTPAIN ---
HPI - Chest Pain General Chief Complaint: Chest Pain Stated Complaint: CHEST PAIN SOB Time Seen by Provider: 11/18/21 12:21 Source: patient History of Present Illness HPI narrative: 41-year-old female with a history of anxiety/depression, Dyslipidemia,recent non-STEMI with a negative cardiac [facility]. The cardiac catheterization at [facility] did not show any occlusive coronary artery disease. The patient was discharged home on 11/13/2021. The patient presents today with -- anterior chest pain since this morning -- shortness of breath MD complaint: chest pain Onset (ago): hour(s) ( 6 hours) Timing of current episode: constant Prior episodes: Yes Onset: during rest Pain location: substernal Pain radiation: none Severity: moderate Quality: aching Relieving factors: nothing Exacerbating factors: nothing Risk Factors Coronary artery disease risk factors: smoking history, hyperlipidemia, hypertension and family history of CAD before age 50 Related Data Home Medications Medication Instructions Recorded Confirmed atorvastatin 40 mg PO HS 11/18/21 11/18/21 metoprolol succinate [Toprol XL] 25 mg PO QPM 11/18/21 11/18/21 Allergies Allergy/AdvReac Type Severity Reaction Status Date / Time No Known Allergies Allergy Unknown Verified 11/18/21 12:34 Review of Systems Review of Systems: All systems reviewed & are unremarkable except as noted in HPI and below Constitutional: Constitutional: Reports as per HPI and Reports no additional constitutional complaints Eyes: Eyes: Reports as per HPI and Reports no additional eye complaints ENT: Reports system reviewed and no additional complaints, except as documented and Reports as per HPI Cardiovascular: Cardiovascular: Reports as per HPI, Reports no additional cardiovascular complaints and Reports chest pain Respiratory: Respiratory: Reports as per HPI, Reports no additional respiratory complaints and Reports dyspnea Gastrointestinal: Gastrointestinal: Reports as per HPI and Reports no additional gastrointestinal complaints Genitourinary: Genitourinary: Reports no additional female genitourinary complaints Musculoskeletal: Musculoskeletal: Reports no additional musculoskeletal complaints and Reports as per HPI Integumentary/Breasts: Skin/Breast: Reports system reviewed and no additional complaints, except as docu and Reports as per HPI Neurologic: Reports system reviewed and no additional complaints, except as documented and Reports as per HPI Psychiatric: Psychiatric: Reports no additional psychiatric complaints and Reports as per HPI Endocrine: Endocrine: Reports no additional endocrine complaints and Reports as per HPI Hematologic/Lymphatic: Hematologic/Lymphatic: Reports no additional hematologic/lymphatic complaints and Reports as per HPI Allergic/Immunologic: Allergic/Immunologic: Reports no additional allergic/immunologic complaints and Reports as per HPI PMFSH Past Medical History Medical History Drug overdose Family history of heart disease Non-ST elevated myocardial infarction (non-STEMI) Around 2014 the patient was admitted to [facility] with chest pain, told she had a heart attack, might of had a heart catheterization, then the following week a plastics spreading machine operator told her she did not have an OR and she could throw away her pills. G5,P3 with miscarriage x1 and elective Ab x1 in Aug 2021. Suicidal ideation Tobacco use Family History Family History Father Heart disease Mother Chest pain Had chest pain. suddenly; rolled her 4 mon off a vanessa, patient wonders if she was unconscious when that occurred. Social History Social History Social History: Lives with boyfriend, her three children and has custody of her niece. She
[2021-11-18 12:25] VITALS: BP 129/81; PULSE 94; RESP 20; TEMP 36.4; O2SAT 98
[2021-11-18 12:46] LABS: Basophils Absolute Auto 0.05 K/mm3 (0.00-0.10); Basophils Percent Auto 0.5 % (0.0-1.0); Eosinophils Absolute Auto 0.22 K/mm3 (0.02-0.50); Eosinophils Percent Auto 2.4 % (1.0-6.0); Hematocrit 44.3 % (35.0-49.0); Hemoglobin 14.7 g/dL (12.0-15.0); Immature Granulocyte Absolute 0.03 K/mm3 (0.00-0.00); Immature Granulocyte Percent A 0.3 % (0.0-0.0); Lymphocytes Absolute Auto 2.32 K/mm3 (1.10-4.50); Mean Corpuscular HGB Conc 33.2 g/dL (32.0-36.0); Mean Corpuscular Hemoglobin 32.2 pg (27.0-31.0); Mean Corpuscular Volume 97.1 fL (78.0-102.0); Mean Platelet Volume 9.3 fl (9.2-11.8); Monocytes Absolute Auto 0.85 K/mm3 (0.10-0.90); Monocytes Percent Auto 9.1 % (2.0-11.0); Neutrophils Absolute Auto 5.8 K/mm3 (1.7-7.2); Neutrophils Percent Auto 62.7 % (50.0-70.0); Platelet Count Result 372 K/mm3 (150-420); Red Blood Count 4.56 M/mm3 (4.20-5.40); Red Cell Distribution Width 12.9 % (11.6-14.4); White Blood Count 9.3 K/mm3 (4.8-10.8)
[2021-11-18 12:58] LABS: D Dimer 0.44 mg/L (0.19-0.50); Prothrombin Time 10.9 Seconds (9.50-12.10)
[2021-11-18 13:03] LABS: Lactic Acid Reflex 1.1 mmol/L (0.4-2.0)
[2021-11-18 13:06] LABS: Alanine Aminotransferase 61 U/L (14-59); Albumin Level 3.8 g/dL (3.4-5.0); Alkaline Phosphatase 84 U/L (46-116); Anion Gap 11 mmol/L (8-16); Aspartate Amino Transferase 27 U/L (15-37); Bilirubin,Total 0.3 mg/dL (0.00-1.00); Blood Urea Nitrogen 13 mg/dL (7-18); Carbon Dioxide 25 mmol/L (21-32); Chloride 102 mmol/L (98-108); Estimated CRCL calculation 120 ml/min; Estimated Glomerular Filt Rate > 60; Glucose 87 mg/dL (70-99); NT Pro B Type Natriuretic Pept 13 pg/mL (0-125); Osmolality Calculated 285 mOsm/kg (285-295); Potassium 3.9 mmol/L (3.5-5.1); Sodium 138 mmol/L (136-145); Total Protein 7.1 g/dL (6.4-8.2); Troponin I 5.5 ng/L (0.00-60.4)
[2021-11-18] MEDS: NICOTINE (*PBKC) 21 MG PATCH 1 PATCH TRANSDERM (13:26)
[2021-11-18] MEDS: ALPRAZolam (*CRX) 0.5 MG TABLET 1 MG PO (13:28)
[2021-11-18 13:37] VITALS: BP 148/84; PULSE 75; RESP 20; TEMP 36.7; O2SAT 98
== END 2021-11-18 13:42 | disposition home or self-care (01) ==
PROVIDERS: Emergency Provider Internal Medicine Critical Care Medicine; PCP Family Medicine
DX: F41.0 Panic disorder [episodic paroxysmal anxiety] (principal); F41.9 Anxiety disorder, unspecified; R07.9 Chest pain, unspecified
CPT/HCPCS: 36415; 80053; 83605; 83880; 84484; 85025; 85380; 85610; 93005; 99284; A9270

== ENCOUNTER 2022-03-30 13:45 | Outpatient (NON) | payer OTHER, SELFPAY | END 2022-03-30 13:46 | disposition home or self-care (01) | LOC: CHSLAB 13:46 | PROVIDERS: Visit Provider Nurse Practitioner Family | DX: R39.9 Unspecified symptoms and signs involving the genitourinary system (principal) | CPT/HCPCS: 87077; 87086; 87088 ==

== ENCOUNTER 2023-10-05 12:46 | Outpatient (NON) | payer MEDICAID, SELFPAY ==
[2023-10-05 13:17] LABS: Appearance Urine Clear (Clear); Bilirubin Urine Negative (Negative); Blood Urine 1+ (Negative); Color Urine Light Yellow (Yellow); Glucose Urine UA Negative (Negative); Ketones Urine Negative (Negative); Leukocyte Esterase Ur 1+ LEU/UL (Negative); Nitrate Urine Negative (Negative); Protein Urine Negative (Negative); Specific Grav Ur 1.015 (1.010-1.020); Urobilinogen Urine 0.2 mg/dL (0.2-1.0)
[2023-10-05 13:22] LABS: Add Urine Microscopic? YES
[2023-10-05 13:23] LABS: Bacteria Urine 1+ /hpf; Squamous Epithelial Cell Urine Few /hpf (Few)
== END 2023-10-05 12:47 | disposition home or self-care (01) ==
LOC: CHSLAB 12:47
PROVIDERS: Visit Provider Nurse Practitioner Family
DX: R39.9 Unspecified symptoms and signs involving the genitourinary system (principal)
CPT/HCPCS: 81001; 87086; 87088

== ENCOUNTER 2023-10-08 12:53 | Outpatient (CLI) | payer SELFPAY ==
--- NOTE | ~2023-10-08 | XR_ITS ---
EXAMINATION: XR abdomen/kub 1V DATE: 10/08/2023 13:41 INDICATION: Left flank pain. Left lower quadrant abdominal pain. Blood in stool. TECHNIQUE: A supine view of the abdomen on 2 radiographs was obtained. COMPARISON: Abdomen radiograph 07/30/2020 FINDINGS: There are no dilated loops of bowel. There is a paucity of stool in the colon. There is an intrauterine device in expected position. There is no visible urolithiasis. IMPRESSION: 1. Normal bowel gas pattern. Reviewed, dictated and finalized at location A. OGRAPH PRINTER
--- NOTE | ~2023-10-08 | US_ITS ---
EXAMINATION: US soft tissue LE LT DATE: 10/08/2023 13:28 INDICATION: Palpable lump at the lateral left foot TECHNIQUE: Multiple grayscale and Doppler ultrasound images of the region of concern at the lateral l eft midfoot were obtained. COMPARISON: None FINDINGS/IMPRESSION: Nonspecific 1.3 x 1.0 x 0.5 cm ill-defined heterogeneously hypoechoic region in the subcutaneous tiss ues overlying the underlying echogenic and shadowing bone at the lateral left foot the region of conc ritesh. Differential would include focal edema, complex fluid collection including bursitis, hematoma or abscess in the appropriate clinical setting or statistically most likely either nonspecific soft tis daisy mass. Correlate clinically and could consider further evaluation with pre and postcontrast MRI as clinically indicated. Reviewed, dictated and finalized at location B. LIFT TRUCK OPERATOR
== END 2023-10-08 12:54 | disposition home or self-care (01) ==
LOC: CHSIMG 12:55
PROVIDERS: PCP Nurse Practitioner Family; Visit Provider Nurse Practitioner Family
DX: R10.9 Unspecified abdominal pain (principal); L02.612 Cutaneous abscess of left foot; M79.89 Other specified soft tissue disorders
CPT/HCPCS: 74018; 76882

== ENCOUNTER 2023-11-28 22:22 | Emergency (ER) | payer MEDICAID, SELFPAY ==
--- NOTE | ~2023-11-28 | XR_ITS ---
EXAMINATION: XR foot RT min 3V DATE: 11/28/2023 23:26 INDICATION: Right foot injury. TECHNIQUE: 4 views of right foot were obtained. COMPARISON: None. FINDINGS: Bone alignment is normal. No fracture. Joint spaces are normal. There is an enthesophyte at plantar aspect of calcaneal tuberosity. IMPRESSION: 1. No fracture. Reviewed, dictated and finalized at location E. IMPRESSION: 1. No fracture.
--- NOTE | ~2023-11-28 | XR_ITS ---
EXAMINATION: XR ankle RT min 3V DATE: 11/28/2023 23:26 INDICATION: Right ankle injury. TECHNIQUE: 4 views of right ankle were obtained. COMPARISON: None. FINDINGS: Bone alignment is normal. No fracture. Joint spaces are normal. There is an enthesophyte at plantar aspect of calcaneal tuberosity. IMPRESSION: 1. No fracture. Reviewed, dictated and finalized at location E. IMPRESSION: 1. No fracture.
[2023-11-28 22:32] VITALS: BP 137/97; PULSE 95; RESP 20; TEMP 36.8; O2SAT 97
--- NOTE | 2023-11-28 22:48 | ED.GENADULT ---
HPI - General Adult General Chief complaint: Extremity Injury, Lower Stated complaint: R ankle injury Time Seen by Provider: 11/28/23 22:39 History of Present Illness HPI narrative: The patient is a 43-year-old woman who was drinking at a bar, went outside to smoke a cigarette, stepped on a ledge and then twisted her right foot and ankle but did not fall, at 7:30 p.m.. She had a few more shots after that, went home but was unable to ambulate very well due to pain on the medial aspect of the right foot. No swelling of the foot. She was able to walk here from her house which is across the street for further evaluation. She did have an episode of emesis from the pain earlier after drinking. She still feels nauseated. No paresthesias or numbness in the foot or ankle. No pain in the back or neck or abdomen or chest. No other complaints. Related Data Home Medications Medication Instructions Recorded Confirmed No Home Medications 11/28/23 11/28/23 Allergies Allergy/AdvReac Type Severity Reaction Status Date / Time No Known Allergies Allergy Unknown Verified 10/05/23 11:07 Review of Systems Review of Systems: All systems reviewed & are unremarkable except as noted in HPI and below Constitutional: Constitutional: Denies chills, Denies excessive sweating, Denies fatigue, Denies fever(s), Denies headache(s) and Denies weakness Eyes: Eyes: Denies change in vision and Denies photophobia ENT: Denies dysphagia, Denies dizziness, Denies headache(s), Denies lip swelling, Denies nasal congestion, Denies sore throat and Denies tongue swelling Cardiovascular: Cardiovascular: Denies chest pain, Denies syncope, Denies rapid heart rate and Denies dyspnea Respiratory: Respiratory: Denies cough, Denies dyspnea and Denies wheezing Gastrointestinal: Gastrointestinal: Denies abdominal pain, Denies constipation, Denies dysphagia, Denies diarrhea, Denies nausea and Denies vomiting Genitourinary: Genitourinary: Denies hematuria, Denies urinary frequency, Denies dysuria and Denies urinary urgency Musculoskeletal: Musculoskeletal: Denies back pain, Denies myalgias, Reports arthralgias (right foot/ankle), Denies joint swelling and Denies numbness Integumentary/Breasts: Skin/Breast: Denies pruritus, Denies erythema and Denies rash Neurologic: Denies confusion, Denies dizziness, Denies syncope, Denies headache(s), Denies focal weakness, Denies numbness and Denies weakness Psychiatric: Psychiatric: Denies anxiety and Denies confusion Endocrine: Endocrine: Denies excessive sweating and Denies fatigue Hematologic/Lymphatic: Hematologic/Lymphatic: Denies easy bleeding and Denies easy bruising Allergic/Immunologic: Allergic/Immunologic: Denies lip swelling, Denies tongue swelling and Denies wheezing PMFSH Past Medical History Medical History Drug overdose Family history of heart disease Fatigue Neck Pain Non-ST elevated myocardial infarction (non-STEMI) Around 2014 the patient was admitted to [facility] with chest pain, told she had a heart attack, might of had a heart catheterization, then the following week a sales office manager told her she did not have an [place] and she could throw away her pills. G5,P3 with miscarriage x1 and elective Ab x1 in Aug 2021. Shoulder pain, right Skin lesions SOB (shortness of breath) Suicidal ideation Tobacco use Family History Family History Father Heart disease Mother Chest pain Had chest pain. suddenly; rolled her 4 mon off a vanessa, patient wonders if she was unconscious when that occurred. Social History Social History Social History: Lives with boyfriend, her three children and has custody of her niece. She would drink 4-5 drinks 3x/week. Marijuana but no other drug use and no hx of IVDU. Smokes 1/2ppd x 25 yrs. Full code. She nominates her boyfriend Solo to be indiv
[2023-11-28] MEDS: ONDANSETRON HCL ODT 4 MG TABLET 8 MG PO (23:12)
[2023-11-28] MEDS: IBUPROFEN 400 MG TABLET 800 MG PO (23:13)
[2023-11-28] MEDS: ACETAMINOPHEN 500 MG TABLET 1000 MG PO (23:13)
--- NOTE | 2023-11-28 23:44 | PC.NURSE ---
Pt angry and being beligerent and yelling at staff and Dr about not getting an MRI to see if something worse is wrong c her ankle. Explained to pt that no MRI thru ER and need to f/u c PMD. Pt being d/c c Rx for crutches. Pt angry about not getting anything els done.
--- NOTE | 2023-11-28 23:50 | PC.NURSE ---
Pt wanting dav wrap for injury, explained that ER didn't order one but one can be given. Pt given dav wrap and applied before she walked out. Pt recorded session in room of dav being applied, then pt ambulated steadily out of ER per self p being offered a w/c. She was instructed on follow-up care c her PMD within 1 week. Pt given Rx for crutches to use and get at pharmacy.
[2023-11-28 23:53] VITALS: BP 136/88; PULSE 84; RESP 18; O2SAT 99
== END 2023-11-28 23:53 | disposition home or self-care (01) ==
PROVIDERS: Emergency Provider Emergency Medicine; PCP Nurse Practitioner Family
DX: S93.601A Unspecified sprain of right foot, initial encounter (principal); X50.0XXA Overexertion from strenuous movement or load, initial encounter; F17.210 Nicotine dependence, cigarettes, uncomplicated; F12.90 Cannabis use, unspecified, uncomplicated
CPT/HCPCS: 73610; 73630; 99283; A9270

== ENCOUNTER 2024-03-30 10:57 | Outpatient (CLI) | payer OTHER, SELFPAY ==
[2024-03-30 12:09] LABS: Thyroid Stimulating Hormone Reflex 2.15 u/IU/mL (0.36-3.74)
== END 2024-03-30 10:58 | disposition home or self-care (01) ==
LOC: CHSLAB 10:59
PROVIDERS: PCP Family Medicine; Visit Provider Family Medicine
DX: I51.81 Takotsubo syndrome (principal)
CPT/HCPCS: 36415; 84443

== ENCOUNTER 2024-04-06 10:32 | Outpatient (CLI) | payer OTHER, SELFPAY ==
--- NOTE | ~2024-04-06 | XR_ITS ---
Left foot Technique: AP, oblique, and lateral views were obtained. Clinical History: Painful lump near base of fifth metatarsal Findings: No acute fracture or dislocation is seen. Osseous alignment is anatomic. Joint spaces are p reserved without erosive or degenerative change. There is focal soft tissue prominence near the base of fifth metatarsal, nonspecific.. Impression: Focal soft tissue prominence at the base of the fifth metatarsal, nonspecific. Correlate for bursitis or soft tissue mass or other soft tissue abnormality. Consider ultrasound or MR to further evaluate. Reviewed, dictated and finalized at location . Impression: Focal soft tissue prominence at the base of the fifth metatarsal, nonspecific. Correlate for bursitis or soft tissue mass or other soft tissue abnormality. Co nsider ultrasound or MR to further evaluate.
--- NOTE | 2024-04-06 12:06 | P.PCNPFT_ITS ---
PFT Procedure Performed PFT Procedure Performed Spirometry with Pre/Post Bronchodilator Plethysmography (Lung Vol) Diffusing Cap (DLCO) Flow Vol Loop PFT Interpretation DOS: 04/06/2024 REQUESTING: Harvey Chin DO REASON FOR TESTING: dyspnea PULMONARY FUNCTION TESTS Results are reliable and reproducible. Spirometry: The pre-bronchodilator FEV1 is 2.90 L, 94%, normal. The pre- bronchodilator FVC is 3.60 L, 94%, normal. The FEV1/FVC ratio is 81%. After bronchodilator, the FEV1 is 3.06 L, 99%, +6. The pre-bronchodilator FVC is 3.62 L, 95%, +1. The FEV1/FVC ratio is 85%. Lung volumes: The total lung capacity is 5.20 L, 86%. The residual volume is 1.60 L, 77%. The RV/TLC is 31%, normal. Airway resistance is increased. Diffusion: DLCO is 19.8, 68%. The DLCO/VA is 4.40, 103%. Flow volume loop: The flow volume loop is unremarkable. IMPRESSION: This study shows normal spirometry without airflow obstruction and no significant response to bronchodilator, normal lung volumes and normal diffusion. Lack of response to bronchodilator should not preclude use if clinically indicated. No prior studies for comparison. Whitney Anglin MD
== END 2024-04-06 10:33 | disposition home or self-care (01) ==
LOC: CHSCARD 10:35
PROVIDERS: PCP Family Medicine; Visit Provider Family Medicine
DX: M79.672 Pain in left foot (principal); R06.00 Dyspnea, unspecified
CPT/HCPCS: 73630; 94060; 94726; 94729

== ENCOUNTER 2024-04-20 09:31 | Outpatient (CLI) | payer OTHER, SELFPAY ==
--- NOTE | ~2024-04-20 | MR_ITS ---
EXAMINATION: MR foot LT wo con DATE: 04/20/2024 10:16 INDICATION: Lump at the lateral side of the left foot TECHNIQUE: Magnetic resonance imaging (MRI) of the left fore/mid foot was performed without intraveno us contrast. Sequences included sagittal T1-weighted FSE, sagittal fluid sensitive FSE STIR, coronal PD-weighted FS FSE, coronal T1-weighted FSE, axial PD-weighted FS FSE, and axial PD-weighted FSE. COMPARISON: Previous dated 04/06/2024 FINDINGS: Bone alignment is normal. Normal marrow signal throughout with no fracture, reactive edema or patholo gic marrow replacing process. Mild osteoarthritis at the first and third tarsal metatarsal joints. No erosions to suggest inflammatory arthritis. Physiologic amount fluid in the joint spaces. Lisfranc l igament complex and the collateral ligament complex at the metatarsophalangeal and interphalangeal shlomo ints are normal. Intrinsic musculature of the foot is unremarkable. There is thickening and increased fluid signal along the septations interspersed between the tiny lobules of T1 hyperintense subcutane ous fat located plantar/lateral to the lateral tuberosity at the base of the fifth metatarsal which c orresponds to the mass of concern most likely related to fibrosis related to chronic inflammation. No discrete bursal fluid collection or homogeneous soft tissue nodules identified. IMPRESSION: 1. Focal region of likely fibrosis without associated bursal fluid collection within the plantar fat pad overlying the dorsolateral base of the fifth metatarsal likely sequela of chronic inflammation. Reviewed, dictated and finalized at location B. IMPRESSION: 1. Focal region of likely fibrosis without associated bursal fluid collection w ithin the plantar fat pad overlying the dorsolateral base of the fifth metatars al likely sequela of chronic inflammation.
== END 2024-04-20 09:32 | disposition home or self-care (01) ==
LOC: CHSIMG 09:34
PROVIDERS: PCP Family Medicine; Visit Provider Family Medicine
DX: M79.89 Other specified soft tissue disorders (principal)
CPT/HCPCS: 73718

== ENCOUNTER 2024-04-22 10:29 | Emergency (ER) | payer OTHER, SELFPAY ==
[2024-04-22 10:34] VITALS: BP 129/92; PULSE 108; RESP 18; TEMP 36.4; O2SAT 96
--- NOTE | 2024-04-22 10:40 | PC.NURSE ---
Dr Miller at the bedside
--- NOTE | 2024-04-22 10:56 | ED.UPPEXIN ---
HPI - Extremity Injury (Upper) General Chief Complaint: Extremity Injury, Upper Stated Complaint: arm pain Time Seen by Provider: 04/22/24 10:31 Source: patient Mode of arrival: ambulatory Limitations: no limitations History of Present Illness HPI narrative: this is a 43-year-old female that had a small pimple on the right axilla and few days ago patient tried to pop the pimple and subsequently caused redness and tenderness with pain under the right axilla but is warm tender and red with no fever chills no shortness of breath no chest pain. complaint: injury to: right Onset (ago): day(s) Other Extremity Injury: Right: arm ( redness and tenderness right axillary area) Related Data Allergies Allergy/AdvReac Type Severity Reaction Status Date / Time No Known Allergies Allergy Unknown Verified 03/30/24 07:57 Review of Systems Review of Systems: All systems reviewed & are unremarkable except as noted in HPI and below PMFSH Past Medical History Medical History Drug overdose Family history of heart disease Fatigue Neck Pain Non-ST elevated myocardial infarction (non-STEMI) Around 2014 the patient was admitted to [facility] with chest pain, told she had a heart attack, might of had a heart catheterization, then the following week a tapering machine operator told her she did not have an [place] and she could throw away her pills. G5,P3 with miscarriage x1 and elective Ab x1 in Aug 2021. Shoulder pain, right Skin lesions SOB (shortness of breath) Suicidal ideation Tobacco use Family History Family History Father Heart disease Mother Chest pain Had chest pain. suddenly; rolled her 4 mon off a vanessa, patient wonders if she was unconscious when that occurred. Social History Social History Social History: Lives with boyfriend, her three children and has custody of her niece. She would drink 4-5 drinks 3x/week. Marijuana but no other drug use and no hx of IVDU. Smokes 1/2ppd x 25 yrs. Full code. She nominates her boyfriend Solo to be individual would make medical decisions for her if she is unable. Smoking packs per day: 1.25 Smoking cigarettes per day: 25.0 Years smoked: 25 Smoking pack-years: 31.25 Smoking status: Current every day smoker Tobacco type: cigarettes Additional smoking assessment comments: smoke marijuana daily and cigarettes Alcohol intake: former Drinks per week: 12 Substance use: current Substance use type: marijuana Other substance usage details: zara Last use: 11/12/21 Living arrangements: with family Occupation/Education: occupation Gender identity (if verbalized by the patient): Female Sexual Orientation (if Verbalized by the Patient): Straight or Heterosexual Spiritual care concerns: No Exam Const: General: healthy appearing and no acute distress Nutritional Appearance: well nourished Orientation/consciousness: patient oriented x3 Limitations: no limitations HENMT: Head: normal to inspection Resp: Effort & Inspection: normal respiratory effort Auscultation: clear to auscultation bilaterally Cardio: Rate: regular rate Rhythm: regular rhythm Skin: Wounds: wounds noted Other: Redness warmth and tenderness right axillary area Course Course Emergency Course: patient received a dose of 1g IM ceftriaxone and antibiotics and pain medicines were prescribed. Vital Signs Vital signs: Vital Signs Temperature 36.4 C L 04/22/24 10:34 Pulse Rate 108 H 04/22/24 10:34 Respiratory Rate 18 04/22/24 10:34 Blood Pressure 129/92 H 04/22/24 10:34 Pulse Oximetry 96 04/22/24 10:34 Oxygen Delivery Room Air 04/22/24 10:34 Temperature 36.4 C L 04/22/24 10:34 Pulse Rate 108 H 04/22/24 10:34 Respiratory Rate 18 04/22/24 10:34 Blood Pressure 129/92 H 04/22/24 10:34 Pulse Oximetry 96 04/22/24 10:34
[2024-04-22] MEDS: cefTRIAXone 1 GM, LIDOCAINE HCL 1% LOCAL INJ 2.1 ML IM (10:59)
[2024-04-22 11:17] VITALS: BP 133/76; PULSE 88; RESP 18; O2SAT 100
== END 2024-04-22 11:17 | disposition home or self-care (01) ==
LOC: CHSED 11:09
PROVIDERS: Emergency Provider Emergency Medicine; PCP Family Medicine
DX: L03.111 Cellulitis of right axilla (principal); I25.2 Old myocardial infarction; F17.210 Nicotine dependence, cigarettes, uncomplicated
CPT/HCPCS: 96372; 99283; J0696